=== PATIENT | female | born 1940 | race Caucasian/White ===

== ENCOUNTER 2017-02-19 16:15 | Emergency (ER) | payer MEDICARE ==
[~2017-02-19] VITALS: Ht 157.5 cm; Wt 88.0 kg
[~2017-02-19 16:15] MED LIST: ACIDCAP9 PO; AMBI10TA PO; ASPI325T33 PO; C 50TAB PO; DILT-30 PO; FLUT1SPR5 EACH NARE; LEXA10TA PO; LOMO2.5T PO; LORA1TAB12 PO; LOSA50TA PO; MAPA500T PO; METO50TA PO; PRAV20TA2 PO; PREV30CA36 PO; WARF-21 PO; WARF-23 PO; [UNRECOGNIZED DRUG - CODE] PO
--- NOTE | 2017-02-19 16:25 | PD ---
HPI Chief Complaint: Allergic/Adverse Reaction Time Seen by Provider: 16:18 Travel History International Travel<30 days: No Contact w/Intl Traveler<30days: No Traveled to known affect area: No History of Present Illness HPI PER PATIENT ONSET OF ITCHING AND HIVES TODAY THIS MORNING, STATES THAT ONLY NEW MEDICATION IS MACROBID, HOWEVER UPON FURTHER QUESTIONING SHE HAS BEEN TAKING FOR MONTHS FOR CHRONIC UTI BY DR SORTO....AFTER FURTHER QUESTIONING PATIENT OFFERS THAT SHE WASHED DISHES AT HER FRIENDS HOUSE AND SHORTLY AFTER DEVELOPED ITCHING TO HANDS WHICH THEN BECAME GENERALIZED. PATIENT TRIED TO TAKE BENADRYL AT HOME BUT RASH KEPT SPREADING...PT DENIES ANY ALLEVIATING/AGGRAVATING FACTORS. NO ASSOC FACTORS OF FEVER/COUGH/N/V/D/CP/ ABDPAIN/BACK PAIN/ PFSH Past Medical History Hx Anticoagulant Therapy: Yes (warfarin) Anemia: Yes (CHILDHOOD) Arthritis: Yes Asthma: No Atrial Fibrillation: Yes (DX 2011) Autoimmune Disease: No Anxiety: Yes Depression: Yes Heart Rhythm Problems: Yes (a-fib) Cancer: No Cardiac Catheterization: No Cardiovascular Problems: Yes High Cholesterol: No Chemotherapy: No Chest Pain: No Congestive Heart Failure: No COPD: No Cerebrovascular Accident: Yes (TIA: 2000) Diabetes: Yes (PRE DIABETIC/ DIET CONTROLLED) Diminished Hearing: No Endocrine: Yes Fibromyalgia: Yes Gastrointestinal Disorders: Yes (IBS, GERD, dysphagia) GERD: Yes Glaucoma: Yes (HX) Genitourinary: Yes (FREQ. UTIS) Headaches: No Hepatitis: No Hiatal Hernia: No Hypertension: Yes Immune Disorder: Yes Implanted Vascular Access Dvce: No Kidney Stones: Yes (?) Musculoskeletal: Yes (ARTHRITIS, FIBROMYALGIA) Neurologic: Yes (STROKE) Psychiatric: Yes (ANXIETY ) Reproductive: No Respiratory: Yes (SLEEP APNEA/ CPAP) Immunizations Current: Yes Migraines: No Radiation Therapy: No Renal Failure: No Seizures: No Shingles: Yes Sickle Cell Disease: No Sleep Apnea: Yes (USES CPAP) Thyroid Disease: No Ulcer: Yes PNEUMOCCOCAL Vaccine (Year): 2010 Menopausal: Yes : 1 Para: 1 Past Surgical History Abdominal Surgery: Yes (LAP. KINSEY) AICD: No Arteriovenous Shunt: No Cardiac Surgery: No Cholecystectomy: Yes Coronary Artery Bypass Graft: No Ear Surgery: No Endocrine Surgery: No Eye Surgery: Yes (BILATERAL CATARACT) Genitourinary Surgery: Yes Gynecologic Surgery: Yes (PARTIAL HYSTERECTOMY) Hysterectomy: Yes Insulin Pump: No Joint Replacement: Yes (LEFT KNEE: 11/09/15) Neurologic Surgery: No Oral Surgery: Yes (GUM TRANSPLANT) Pacemaker: No Thoracic Surgery: No Tonsillectomy: Yes Other Surgery: Yes (RIGHT BREAST CYST X4 REMOVED) Social History Alcohol Use: No Tobacco Use: No (QUIT AGE 41) Substance Use: No Allergies-Medications (Allergen,Severity, Reaction): Coded Allergies: Sulfa (Sulfonamide Antibiotics) (Unverified Allergy, Severe, Diarrhea, 12/27) adhesive (Unverified Allergy, Severe, UNKNOWN, 02/19/17) brimonidine (Unverified Allergy, Severe, 02/19/17) morphine (Unverified Allergy, Intermediate, Nausea/Vomiting, 02/19/17) ciprofloxacin (Unverified Allergy, Unknown, 02/19/17) Reported Meds & Prescriptions Reported Meds & Active Scripts Active Warfarin 7.5 Mg Tab 7.5 Mg PO DAILY Take 7.5mg Monday, , and Monday Take 5mg Monday, Monday, Monday, and Monday Warfarin 5 Mg Tab 5 Mg PO DIRECTED Take 5mg on Monday, Monday, Monday, and Monday. Take 7.5mg on Monday, , and Monday. Reported Flonase Nasal [place] (Fluticasone Nasal [place]) 50 Mcg/Act [place] 2 [place] EACH NARE DAILY PRN Lomotil (Diphenoxylate-Atropine) 2.5-0.025 Mg Tab 1 Tab PO QID PRN Ambien (Zolpidem Tartrate) 10 Mg Tab 10 Mg PO HS Metoprolol Tartrate 50 Mg Tab 50 Mg PO BID Losartan (Losartan Potassium) 50 Mg Tab 50 Mg PO BID Lorazepam 1 Mg Tab 1 Mg PO Q8H PRN Prevacid (Lansoprazole) 30 Mg Capdr 30 Mg PO DAILY Lexapro (Escitalopram Oxalate) 10 Mg Tab 10 Mg PO DAILY Review of Systems Except as stated in HPI: all other systems reviewed are Neg General / Constitutional: No: Fever Eyes: No: Visual changes HENT: No: Headaches Cardiovascular: No: Chest Pain or Discomfort Respiratory: No: Shortness of Breath Gastrointestinal: No: Abdominal Pain Genitourinary: No: Dysuria Musculoskeletal: No: Pain Skin: Positive Rash, Positive Itching, Positive Hives Neurologic: No: Weakness Psychiatric: No: Depression Endocrine: No: Polydipsia Hematologic/Lymphatic: No: Easy Bruising Physical Exam Narrative GENERAL: SKIN: Warm and dry. LARGE HIVES THROUGHOUT TRUNK/ABD/BACK/EXTREMITIES HEAD: Atraumatic. Normocephalic. EYES: Pupils equal and round. No scleral icterus. No injection or drainage. ENT: No nasal bleeding or discharge. Mucous membranes pink and moist. NECK: Trachea midline. No JVD. NO STRIDOR, NO UVULAR EDEMA CARDIOVASCULAR: Regular rate and rhythm. RESPIRATORY: No accessory muscle use. Clear to auscultation. Breath sounds equal bilaterally. NO WHEEZING GASTROINTESTINAL: Abdomen soft, non-tender, nondistended. MUSCULOSKELETAL: Extremities without clubbing, cyanosis, or edema. No obvious deformities. NEUROLOGICAL: Awake and alert. No obvious cranial nerve deficits. Motor grossly within normal limits. Five out of 5 muscle strength in the arms and legs. Normal speech. PSYCHIATRIC: Appropriate mood and affect; insight and judgment normal. Data Data Last Documented VS Vital Signs Date Time Temp Pulse Resp B/P (MAP) Pulse Ox O2 Delivery O2 Flow Rate FiO2 02/19/17 16:37 98.2 80 16 131/63 (85) 98 02/19/17 16:31 Room Air Orders Orders Ecg Monitoring (02/19/17 16:21) Iv Access Insert/Monitor (02/19/17 16:21) Oximetry (02/19/17 16:21) Diphenhydramine Inj (Benadryl Inj) (02/19/17 16:30) Famotidine Inj (Pepcid Inj) (02/19/17 16:30) Sodium Chloride 0.9% Flush (Ns Flush) (02/19/17 16:30) Methylprednisolone So Succ Inj (Solumedr (02/19/17 16:45) Sodium Chloride 0.9% Flush (Ns Flush) (02/19/17 16:45) [facility] Medical Decision Making Medical Screen Exam Complete: Yes Emergency Medical Condition: Yes Medical Record Reviewed: Yes Differential Diagnosis SHINGLES V ALLERGIC REACTION V CONTACT DERMATITIS Narrative Course AFTER CLOSE INSPECTION PATIENT HAS HIVES DIFFUSELY ON BODY, AND MOST LIKELY IS RELATED TO HER NEIGHBORS SOAP THAT SHE USED TO HELP CLEAN HER FRIEND'S DISHES. Diagnosis Primary Impression: HIVES Patient Instructions: General Allergic Reaction (ED), General Instructions Scripts Famotidine (Pepcid) 40 Mg Tab 40 MG PO DAILY, #7 TAB 0 Refills Prov: Bennie Blood MD 02/19/17 Loratadine (Claritin) 10 Mg Cap 10 MG PO DAILY for Allergy Management, #7 CAP 0 Refills Prov: Bennie Blood MD 02/19/17 Methylprednisolone Dosepak (Medrol Dosepak) 4 Mg Dspk 4 MG PO DIRECTED, #1 DSPK 0 Refills Per Pharmacist direction Prov: Bennie Blood MD 02/19/17 Disposition: 01 DISCHARGE HOME Condition: Stable Bennie Blood MD Feb 19, 2017 16:25
[2017-02-19] MEDS ORDERED: FAMOTIDINE 20 MG/2 ML VIAL IV PUSH ONE (16:30)
[2017-02-19] MEDS ORDERED: SODIUM CHLORIDE 0.9% FLUSH 10 ML FLUSH IV FLUSH PRN ×2 (16:30→16:45)
[2017-02-19] MEDS ORDERED: methylPREDNISolone SOD SUCC 125 MG/2 ML VIAL IM ONE (16:30)
[2017-02-19] MEDS ORDERED: diphenhydrAMINE HCL 50 MG/ML VIAL IVP ONE (16:30)
[2017-02-19 16:31] VITALS: O2SAT 100
[2017-02-19 16:37] VITALS: BP 131/63; PULSE 80; RESP 16; TEMP 98.2; O2SAT 98
[2017-02-19] MEDS ORDERED: methylPREDNISolone SOD SUCC 125 MG/2 ML VIAL IV PUSH ONE (16:45)
[2017-02-19] MEDS ORDERED: MEDR4PAK PO (17:24)
[2017-02-19] MEDS ORDERED: CLAR10CA3 PO (17:24)
[2017-02-19] MEDS ORDERED: FAMO1TAB73 PO (17:24)
== END 2017-02-19 17:47 | disposition home or self-care (01) ==
LOC: PHED 16:15
DX: L50.9 Urticaria, unspecified (principal); M19.90 Unspecified osteoarthritis, unspecified site; I48.91 Unspecified atrial fibrillation; E11.9 Type 2 diabetes mellitus without complications; I10 Essential (primary) hypertension; Z79.01 Long term (current) use of anticoagulants
CPT/HCPCS: 96374; 96375; 99284; J1200; J2930